=== PATIENT | female | born 1995 | race Caucasian/White ===

== ENCOUNTER → 2024-02-05 | Outpatient (CLI) | payer OTHER, SELFPAY ==
--- NOTE | 2024-02-05 18:02 | US_ITS ---
INDICATION: pelvic pain EXAMINATION: Ultrasound US Pelvis Non OB Complete With Transvaginal Imaging TECHNIQUE: Transabdominal and transvaginal pelvic ultrasound was performed. Grayscale, spectral waveform, and color flow Doppler evaluation of the adnexa. COMPARISON: No relevant prior comparison study available FINDINGS: UTERUS: The uterus measures 7.9 x 4.6 x 5.7 cm. There is no uterine mass. The endometrial stripe measures 5.4 mm in AP diameter which is within normal limits. There is an intrauterine device in place in a grossly satisfactory position. RIGHT OVARY: 3.4 x 2.6 x 2.5 cm. There are peripherally located subcentimeter cysts. Non-enlarged, normal echogenicity. There is normal arterial inflow and venous outflow present in the right ovary. LEFT OVARY: 3.6 x 2.5 x 2.6 cm. There are peripherally located subcentimeter cysts. Non-enlarged, normal echogenicity. There is normal arterial inflow and venous outflow present in the left ovary. FREE FLUID: None. US/Pelvic w/ Transvaginal IMPRESSION: Bilateral peripherally located subcentimeter cysts suggestive of a history of polycystic ovarian syndrome. Intrauterine device in a grossly satisfactory position. Electronically Signed: Kim Silva MD at 20:05 EDT ,
== END | disposition home or self-care (01) ==
LOC: US 18:00
PROVIDERS: PCP Family Medicine; Referring Provider Nurse Practitioner Family; Visit Provider Nurse Practitioner Family
DX: R10.2 Pelvic and perineal pain (principal)
CPT/HCPCS: 76830; 76856